=== PATIENT | male | born 2005 | race Caucasian/White ===

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

== ENCOUNTER 2023-05-23 12:10 | Emergency (ER) | payer OTHER ==
[2023-05-23] MEDS ORDERED: RABIES VACCINE (PCEC) 2.5 UNIT KIT IM ONE (13:19)
--- NOTE | 2023-05-23 13:25 | ED ---
Recheck HPI - General Chief Complaint: Recheck/Abnormal Lab/Rx Stated Complaint: Cuts on both hands Time Seen by Provider: 05/23/23 12:58 Source: patient, RN notes reviewed Mode of arrival: ambulatory Limitations: no limitations - History of Present Illness Initial Comments: This is a 18-year-old male who presents to the emergency department inquiring ab out a rabies vaccine. States that he was at his friend's house yesterday, when a bat was flying around and he proceeded to grab it. He does not believe that the bat bit him, however he had several open wounds on his hands at that time and he is worried that they may have been contaminated by the bat. He inquired as to if he would need the rabies vaccine. He did have the full rabies vaccine series one year ago due to a dog bite on the left leg. Denies any fevers, chills, sore throat, cough, dyspnea, chest pain, palpitations, abdominal pain, nausea, vomiting, diarrhea, back pain, or headaches. - Related Data Home Medications Medication Instructions Recorded Confirmed Calcium Carbonate [Calcium] 600 mg PO DAILY 02/17/18 05/26/23 Cholecalciferol [Vitamin D3] 1,000 unit PO DAILY 02/17/18 05/26/23 Dextroamphetamine/Amphetamine 30 mg PO QAM 02/17/18 05/26/23 [Adderall Xr] Multivitamins, Thera [Multivitamin 1 tab PO DAILY 02/17/18 05/26/23 (formulary)] FLUoxetine HCL [PROzac] 10 mg PO DAILY 11/19/18 05/26/23 Allergies Allergy/AdvReac Type Severity Reaction Status Date / Time No Known Allergies Allergy Verified 05/26/23 12:04 Review of Systems ROS Statement: Those systems with pertinent positive or pertinent negative responses have been documented in the HPI. ROS Other: All systems not noted in ROS Statement are negative. Past Medical History Past Medical History: No Reported History Additional Past Medical History / Comment(s): osteogenesis imperfecta History of Any Multi-Drug Resistant Organisms: None Reported Past Surgical History: No Surgical Hx Reported Past Psychological History: No Psychological Hx Reported Smoking Status: Never smoker Past Alcohol Use History: None Reported Past Drug Use History: None Reported General Exam Limitations: no limitations General appearance: alert, in no apparent distress Head exam: Present: atraumatic, normocephalic, normal inspection Respiratory exam: Present: normal lung sounds bilaterally. Absent: respiratory distress, wheezes, rales, rhonchi, stridor Cardiovascular Exam: Present: regular rate, normal rhythm, normal heart sounds. Absent: systolic murmur, diastolic murmur, rubs, gallop, clicks Neurological exam: Present: alert, oriented X3, CN II-XII intact Psychiatric exam: Present: normal affect, normal mood Skin exam: Present: other (Scattered abrasions on the bilateral hands. No active bleeding.) Course Vital Signs 05/23/23 05/23/23 12:29 14:12 Temperature 98 F 98.2 F Pulse Rate 75 65 Respiratory 20 18 Rate Blood Pressure 154/89 116/72 O2 Sat by Pulse 99 100 Oximetry Medical Decision Making - Medical Decision Making This is a 18-year-old male who presents to the emergency department for possible rabies vaccine. Was pt. sent in by a medical professional or institution? @ -No Did you speak to anyone other than the patient for history? @ -No Did you review nursing and triage notes? @ -Yes, and I agree, it is accurate with regards to the patient's symptoms. Were old charts reviewed? @ -No Differential Diagnosis? @ -Not applicable EKG interpreted by me (3pts min.)? @ -Not obtained X-rays interpreted by me (1pt min.)? @ -Not obtained CT interpreted by me (1pt min.)? @ -Not obtained U/S interpreted by me (1pt. min.)? @ -Not obtained What testing was considered but not performed? (CT, X-rays, U/S, labs)? Why? @ -None What meds were considered but not given? Why? @ -None Did you discuss the management of the patient with other professionals? @ -No Did you reconcile home meds? @ -No Was smoking cessation discussed for >3mins.? @ -No Was critical care preformed (if so, how long)? @ -No Were there social determinants of health that impacted care today? How? (Homelessness, low income, unemployed, alcoholism, drug addiction, transportation, low edu. Level, literacy, decrease access to med. care, half-way, rehab)? @ -No Was there de-escalation of care discussed even if they declined? (Discuss DNR or withdrawal of care, Hospice)? @ -No What co-morbidities impacted this encounter? (DM, HTN, Smoking, COPD, CAD, Cancer, CVA, Hep., AIDS, mental health diagnosis, sleep apnea, morbid obesity)? @ -None Was patient admitted / discharged? @ -Discharged. Per current CDC guidelines, 2 doses of the rabies vaccine are advised for those who have been previously vaccinated. Immune globulin is not indicated. Given the possibility of wound contamination from the bat, patient wishes to proceed with vaccination. He was given 1 dose of the rabies vaccine in the emergency department and a lab slip was faxed to [facility] for the patient to receive an additional dose in 3 days. Undiagnosed new problem with uncertain prognosis? @ -None Drug Therapy requiring intensive monitoring for toxicity (Heparin, Nitro, Insulin, Cardizem)? @ -None Were any procedures done? @ -None Diagnosis/symptom? @ -Bat encounter Acute, or Chronic, or Acute on Chronic? @ -Acute Uncomplicated (without systemic symptoms) or Complicated (systemic symptoms)? @ -Uncomplicated Side effects of treatment? @ -None Exacerbation, Progression, or Severe Exacerbation] @ -Not applicable Poses a threat to life or bodily function? @ -No Return precautions reviewed in depth, the patient is instructed to return to the emergency department with any new, worsening, or concerning symptoms. Patient verbalized understanding. This case was discussed in detail with the attending ED physician, Dr. River. Presentation, findings, and treatment plan discussed in detail as well. Disposition Clinical Impression: Bat bite wound Disposition: HOME SELF-CARE Instructions (If sedation given, give patient instructions): Rabies Vaccine (By injection), Rabies (ED) Additional Instructions: Return to the emergency department with any new, worsening, or concerning symptoms. You will receive one shot of the rabies vaccine today and another in 3 days, on 05/26. Follow up with your primary care provider in 1-2 days. Is patient prescribed a controlled substance at d/c from ED?: No Referrals: Sebastien Espinal MD [Primary Care Provider] - 1-2 days
[2023-05-23 14:14] VITALS: BP 116/72; PULSE 65; RESP 18; TEMP 98.2
== END 2023-05-23 14:14 | disposition home or self-care (01) ==
LOC: EC 12:10
DX: S81.852A Open bite, left lower leg, initial encounter (principal); Z29.14 Encounter for prophylactic rabies immune globulin; W55.81XA Bitten by other mammals, initial encounter
CPT/HCPCS: 90471; 90675; 99283

== ENCOUNTER → 2023-05-26 | Outpatient (CLI) | payer OTHER ==
[~2023-05-26] MED LIST: RABIES VACCINE (PCEC) 2.5 UNIT KIT IM ONE
[2023-05-26 12:07] VITALS: BP 117/75; PULSE 71; RESP 16; TEMP 97.5
== END ==
LOC: PROCWHC3 11:59
PROVIDERS: ATTEND Physician Assistant
DX: Z20.3 Contact with and (suspected) exposure to rabies (principal)
CPT/HCPCS: 90471; 90675

== ENCOUNTER 2023-08-21 14:41 | Emergency (ER) | payer OTHER ==
[2023-08-21 14:51] VITALS: BP 139/95; PULSE 97; RESP 18; TEMP 98.9
--- NOTE | 2023-08-21 16:32 | ED ---
General Adult HPI - General Chief complaint: Back Pain/Injury Stated complaint: back pain Time Seen by Provider: 08/21/23 16:11 Source: patient, RN notes reviewed Mode of arrival: ambulatory Limitations: no limitations - History of Present Illness Initial comments: 18 year old male presents to the emergency department for chief complaint of neck pain. Patient states that he bent over yesterday to grab his phone and felt a pain at the base of his neck. He states that the pain has continued since then. He denies taking any medication for the pain. He has a history of osteogenesis imperfecta. Denies numbness, tingling, radiation of the pain. - Related Data Home Medications Medication Instructions Recorded Confirmed Calcium Carbonate [Calcium] 600 mg PO DAILY 02/17/18 05/26/23 Cholecalciferol [Vitamin D3] 1,000 unit PO DAILY 02/17/18 05/26/23 Dextroamphetamine/Amphetamine 30 mg PO QAM 02/17/18 05/26/23 [Adderall Xr] Multivitamins, Thera [Multivitamin 1 tab PO DAILY 02/17/18 05/26/23 (formulary)] FLUoxetine HCL [PROzac] 10 mg PO DAILY 11/19/18 05/26/23 Allergies Allergy/AdvReac Type Severity Reaction Status Date / Time No Known Allergies Allergy Verified 08/21/23 14:46 Review of Systems ROS Statement: Those systems with pertinent positive or pertinent negative responses have been documented in the HPI. ROS Other: All systems not noted in ROS Statement are negative. Past Medical History Past Medical History: No Reported History Additional Past Medical History / Comment(s): osteogenesis imperfecta History of Any Multi-Drug Resistant Organisms: None Reported Past Surgical History: No Surgical Hx Reported Past Psychological History: Anxiety, Depression Smoking Status: Vaper Past Alcohol Use History: None Reported Past Drug Use History: Marijuana General Exam Limitations: no limitations General appearance: alert, in no apparent distress Head exam: Present: atraumatic, normocephalic, normal inspection Eye exam: Present: normal appearance, PERRL, EOMI. Absent: scleral icterus, conjunctival injection, periorbital swelling ENT exam: Present: normal exam, mucous membranes moist Neck exam: Present: normal inspection, tenderness, full ROM. Absent: meningismus, lymphadenopathy Respiratory exam: Present: normal lung sounds bilaterally. Absent: respiratory distress, wheezes, rales, rhonchi, stridor Cardiovascular Exam: Present: regular rate, normal rhythm, normal heart sounds. Absent: systolic murmur, diastolic murmur, rubs, gallop, clicks Extremities exam: Present: normal inspection, full ROM, normal capillary refill, other (5/5 strength in upper extremities). Absent: tenderness, pedal edema, joint swelling, calf tenderness Neurological exam: Present: alert, oriented X3 Psychiatric exam: Present: normal affect, normal mood Skin exam: Present: warm, dry, intact, normal color. Absent: rash Course Vital Signs 08/21/23 14:46 Temperature 98.9 F Pulse Rate 97 Respiratory 18 Rate Blood Pressure 139/95 O2 Sat by Pulse 100 Oximetry Medical Decision Making - Medical Decision Making Was pt. sent in by a medical professional or institution ([facility], [employer], urgent care, hospital, or jail...) When possible be specific @ -No Did you speak to anyone other than the patient for history (EMS, parent, family, police, friend...)? What history was obtained from this source @ -No Did you review nursing and triage notes (agree or disagree)? Why? @ -I reviewed and agree with nursing and triage notes Were old charts reviewed (outside hosp., previous admission, EMS record, old EKG, old radiological studies, urgent care reports/EKG's, jail records)? Report findings @ -No old charts were reviewed Differential Diagnosis (chest pain, altered mental status, abdominal pain women, abdominal pain men, vaginal bleeding, weakness, fever, dyspnea, syncope, headache, dizziness, GI bleed, back pain, seizure, CVA, palpatations, mental health, musculoskeletal)? @ -Differential Musculoskeletal Muscular strain, contusion, ligament sprain, fracture, arthritis, septic arthritis, bursitis, cellulitis, muscle spasm, nerve compression, DVT, arterial occlusion, herpes zoster, electrolyte abnormality, tumor.... This is not meant to be in all inclusive list EKG interpreted by me (3pts min.). @ -none X-rays interpreted by me (1pt min.). @ -XR cervical spine shows no evidence of acute fracture CT interpreted by me (1pt min.). @ -None done U/S interpreted by me (1pt. min.). @ -None done What testing was considered but not performed or refused? (CT, X-rays, U/S, labs)? Why? @ -None What meds were considered but not given or refused? Why? @ -medication for pain control was considered but patient declined Did you discuss the management of the patient with other professionals (professionals i.e. , PA, [employer], lab, RT, psych nurse, social science teacher, integration software developer, teacher, aoc director combat operations officer, major case detective)? Give summary @ -No Was smoking cessation discussed for >3mins.? @ -No Was critical care preformed (if so, how long)? @ -No Were there social determinants of health that impacted care today? How? (Homelessness, low income, unemployed, alcoholism, drug addiction, transportation, low edu. Level, literacy, decrease access to med. care, [facility], rehab)? @ -No Was there de-escalation of care discussed even if they declined (Discuss DNR or withdrawal of care, Hospice)? DNR status @ -No What co-morbidities impacted this encounter? (DM, HTN, Smoking, COPD, CAD, Cancer, CVA, ARF, Chemo, Hep., AIDS, mental health diagnosis, sleep apnea, morbid obesity)? @ -None Was patient admitted / discharged? Hospital course, mention meds given and route, prescriptions, significant lab abnormalities, going to OR and other pertinent info. @ -discharged. Patient presented to the emergency department for chief complaint of neck pain. X-ray of the cervical spine was obtained which shows no evidence of acute fracture. Patient has appropriate strength in upper and lower extremities, radial pulses 2+, sensation intact. Medication for pain control was considered but patient declined. Patient advised them findings of x-rays. Patient discharged home in stable condition. Case discussed with Dr. Mckeon Undiagnosed new problem with uncertain prognosis? @ -No Drug Therapy requiring intensive monitoring for toxicity (Heparin, Nitro, Insulin, Cardizem)? @ -No Were any procedures done? @ -No Diagnosis/symptom? @ -neck strain Acute, or Chronic, or Acute on Chronic? @ -acute Uncomplicated (without systemic symptoms) or Complicated (systemic symptoms)? @ -uncomplicated Side effects of treatment? @ -No Exacerbation, Progression, or Severe Exacerbation? @ -No Poses a threat to life or bodily function? How? (Chest pain, [place], [place], pneumonia, PE, COPD, DKA, ARF, appy, cholecystitis, CVA, Diverticulitis, Homicidal, Suicidal, threat to staff... and all critical care pts) @ -No Disposition Clinical Impression: Neck pain Disposition: HOME SELF-CARE Condition: Stable Instructions (If sedation given, give patient instructions): Cervical Strain (ED) Additional Instructions: Please follow up with your primary care provider. Alternate Tylenol and Motrin as needed for pain. Return to the emergency department for new or worsening symptoms. Is patient prescribed a controlled substance at d/c from ED?: No Referrals: Sebastien Espinal MD [Primary Care Provider] - 1-2 days
--- NOTE | 2023-08-21 16:53 | XR ---
EXAMINATION TYPE: XR cervical spine comp DATE OF EXAM: 08/21/2023 COMPARISON: None HISTORY: Pain TECHNIQUE: 5 view cervical spine FINDINGS: Prevertebral space is normal. Disc heights are preserved. Vertebral body heights are preser loli. Posterior spinal lamellar line is intact. Subtle cyst kyphosis is present centered at C4. Forame n are patent. Odontoid tip is somewhat limited with overlying maxilla. IMPRESSION: 1. No acute osseous abnormality cervical spine
== END 2023-08-21 18:03 | disposition home or self-care (01) ==
LOC: EC 14:41
DX: M54.2 Cervicalgia (principal); F41.9 Anxiety disorder, unspecified; F32.A Depression, unspecified; F17.290 Nicotine dependence, other tobacco product, uncomplicated; F12.90 Cannabis use, unspecified, uncomplicated; Z79.899 Other long term (current) drug therapy
CPT/HCPCS: 72050; 99283